=== PATIENT | male | born 2000 | race Caucasian/White ===

== ENCOUNTER → 2022-09-24 10:54 | Outpatient (REF) | payer BC, SELFPAY ==
--- NOTE | ~2022-09-24 | NM_ITS ---
EXAMINATION: NM BONE SCAN OF THE WHOLE BODY CLINICAL INFORMATION: Low back pain COMPARISON: None TECHNIQUE: Multiple gamma scintillation camera images of the whole body were performed 3 hours following the intravenous administration of 25 mCi Tc-99m MDP. FINDINGS: In the head, no abnormal uptake In the thoracic cage and upper extremities, no abnormal uptake In the spine, no abnormal uptake seen in the cervical, dorsal, lumbar or sacral spine. In the pelvis, the SI joints are symmetrical no abnormal activity seen in the pelvic bones. In the lower extremities, no abnormality seen in the lower extremities or either femur. No other definite bony abnormalities are noted. There is mild focal activity seen in the upper pole left kidney likely focal caliectasis. No abnormal activity seen in the right kidney or the bladder. NM/NM bone scan whole body IMPRESSION: No definite abnormal skeletal activity seen to suspect ankylosing spondylitis
== END ==
LOC: HO.NUCMED 10:54
PROVIDERS: Visit Provider Internal Medicine Rheumatology
DX: M54.6 Pain in thoracic spine (principal)
CPT/HCPCS: 78306; A9503